=== PATIENT | female | born 1980 | race Two or more races ===

== ENCOUNTER 2025-01-15 21:04 | Emergency (ER) | payer BC ==
[~2025-01-15] VITALS: Ht 162.6 cm; Wt 49.9 kg
[2025-01-15] MEDS ORDERED: DIPHENHYDRAMINE HCL 50 MG/ML VIAL 1ML IM STA (22:48)
[2025-01-15] MEDS ORDERED: METHYLPREDNISOLONE SOD SUCC 125 MG VIAL IM STA (22:48)
[2025-01-15] MEDS ORDERED: METHYLPREDNISOLONE SOD SUCC 125 MG VIAL ONE (23:21)
[2025-01-15] MEDS ORDERED: DIPHENHYDRAMINE HCL 50 MG/ML VIAL 1ML ONE (23:21)
== END 2025-01-15 23:34 | disposition home or self-care (01) ==
LOC: ER 21:06
DX: L50.9 Urticaria, unspecified (principal); R21 Rash and other nonspecific skin eruption